=== PATIENT | female | born 2000 | race Caucasian/White ===

== ENCOUNTER 2024-12-18 16:01 | Emergency (ER) | payer MEDICAID ==
[~2024-12-18] VITALS: Ht 157.5 cm; Wt 51.0 kg
[2024-12-18 16:10] VITALS: BP 128/84; PULSE 98; RESP 18; TEMP 37.1; O2SAT 100
== END 2024-12-18 17:32 | disposition left against medical advice (07) ==
LOC: ER 16:01
DX: F10.129 Alcohol abuse with intoxication, unspecified (principal); Z98.890 Other specified postprocedural states; Y90.9 Presence of alcohol in blood, level not specified